=== PATIENT | female | born 1985 | race Caucasian/White ===

== ENCOUNTER 2018-10-14 12:10 | Outpatient (CLI) | payer OTHER | END 2018-10-14 12:11 | disposition home or self-care (01) | LOC: C.LAB 12:10 | DX: N91.2 Amenorrhea, unspecified (principal) ==

== ENCOUNTER 2018-12-23 09:31 | Outpatient (CLI) | payer OTHER | END 2018-12-23 09:32 | disposition home or self-care (01) | LOC: C.LAB 09:31 ==

== ENCOUNTER 2019-01-04 09:59 | Outpatient (CLI) | payer MEDICAID | END 2019-01-04 10:00 | disposition home or self-care (01) | LOC: C.LAB 09:59 | DX: Z34.83 Encounter for supervision of other normal pregnancy, third trimester (principal) ==